=== PATIENT | female | born 1955 | race Caucasian/White ===

== ENCOUNTER 2019-02-19 12:40 | Outpatient (CLI) | payer OTHER ==
[~2019-02-19 12:40] MED LIST: REGADENOSON 0.4 MG/5 ML SYRINGE ONE
== END 2019-02-19 23:59 | disposition home or self-care (01) ==
LOC: CFH 12:40
PROVIDERS: ATTEND Internal Medicine Cardiovascular Disease
DX: R94.31 Abnormal electrocardiogram [ECG] [EKG] (principal)
CPT/HCPCS: 78452; 93017; A9502; J2785